=== PATIENT | female | born 1995 | race Two or more races ===

== ENCOUNTER 2023-03-15 10:25 | Emergency (ER) | payer OTHER, SELFPAY ==
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
[2023-03-15 10:27] VITALS: BP 123/69; PULSE 92; RESP 18; TEMP 36.7; O2SAT 99
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
[2023-03-15] MEDS: ACETAMINOPHEN 500 MG TABLET 1000 MG PO (13:08)
[2023-03-15] MEDS: TETANUS,DIPHTHERIA,AC PERTUSSIS ADULT (0.5 ML) BOOSTRIX IM (13:09)
[2023-03-15] MEDS: LIDOCAINE HCL 1% LOCAL INJ 10 ML VIAL INFILTRATE (13:09)
== END 2023-03-15 14:50 | disposition home or self-care (01) ==
PROVIDERS: Emergency Provider Physician Assistant
DX: S00.83XA Contusion of other part of head, initial encounter (principal); S80.01XA Contusion of right knee, initial encounter; S61.412A Laceration without foreign body of left hand, initial encounter; Z23 Encounter for immunization; V43.63XA Car passenger injured in collision with pick-up truck in traffic accident, initial encounter
CPT/HCPCS: 12002; 70450; 73130; 73564; 90471; 90715; 99284; A9270